=== PATIENT | male | born 1960 | race Caucasian/White ===

== ENCOUNTER 2020-03-03 15:34 | Inpatient (IN) | payer OTHER ==
[~2020-03-03] VITALS: Ht 182.9 cm; Wt 95.3 kg
[2020-03-03] MEDS ORDERED: ZINC50 M1 PO (16:05)
[2020-03-03] MEDS ORDERED: ASA-BUTALB-CAF1 EACH PO (16:05)
== END 2020-03-14 18:08 | disposition home health service (06) | DRG 623 ==
LOC: ER 15:34 → MEDJ 20:34
PROVIDERS: ADMIT Internal Medicine; ATTEND Internal Medicine
PROC: 8E0ZXY6 Isolation (ICD-10-PCS; 2020-03-04)
PROC: 0JBR0ZZ Excision of Left Foot Subcutaneous Tissue and Fascia, Open Approach (ICD-10-PCS; principal; 2020-03-06)
PROC: BQ2 Imaging, Non-Axial Lower Bones, Computerized Tomography (CT Scan) (ICD-10-PCS; 2020-03-08)
PROC: 02HV33Z Insertion of Infusion Device into Superior Vena Cava, Percutaneous Approach (ICD-10-PCS; 2020-03-09)
DX: E11.621 Type 2 diabetes mellitus with foot ulcer (principal); E87.1 Hypo-osmolality and hyponatremia; I96 Gangrene, not elsewhere classified; L97.423 Non-pressure chronic ulcer of left heel and midfoot with necrosis of muscle; M86.172 Other acute osteomyelitis, left ankle and foot; E11.65 Type 2 diabetes mellitus with hyperglycemia; D50.8 Other iron deficiency anemias; B96.4 Proteus (mirabilis) (morganii) as the cause of diseases classified elsewhere; B95.2 Enterococcus as the cause of diseases classified elsewhere; E86.0 Dehydration; Z20.828 Contact with and (suspected) exposure to other viral communicable diseases; Z79.4 Long term (current) use of insulin

== ENCOUNTER → 2020-03-21 | Emergency (ER) | payer OTHER ==
[~2020-03-21] VITALS: Ht 188 cm; Wt 108.9 kg
[~2020-03-21] MED LIST: ASA-BUTALB-CAF1 EACH PO; ZINC50 M1 PO
== END | disposition left against medical advice (07) ==
LOC: ER 17:01
DX: Z53.20 Procedure and treatment not carried out because of patient's decision for unspecified reasons (principal)

== ENCOUNTER 2020-03-22 08:44 | Emergency (ER) | payer OTHER ==
[~2020-03-22] VITALS: Ht 188 cm; Wt 108.9 kg
== END 2020-03-22 16:31 | disposition home or self-care (01) ==
LOC: ER 08:44
DX: T82.898A Other specified complication of vascular prosthetic devices, implants and grafts, initial encounter (principal)

== ENCOUNTER → 2021-03-16 | Outpatient (CLI) | payer OTHER | END | disposition home or self-care (01) | LOC: CANPRECLI → WOUND CARE 08:15 | PROVIDERS: ATTEND Specialist | DX: E10.621 Type 1 diabetes mellitus with foot ulcer (principal); L97.522 Non-pressure chronic ulcer of other part of left foot with fat layer exposed; L97.512 Non-pressure chronic ulcer of other part of right foot with fat layer exposed; R60.0 Localized edema | CPT/HCPCS: 11042; A6219; A6212; A4930; A4554; A6216 ==

== ENCOUNTER 2022-04-12 11:37 | Inpatient (IN) | payer OTHER ==
[~2022-04-12] VITALS: Ht 188 cm; Wt 97.5 kg
[2022-04-12] MEDS ORDERED: LOTREL 5-10 MG1 CAP PO (12:47)
[2022-04-12] MEDS ORDERED: SIMVASTATIN5 MG (12:48)
[2022-04-12] MEDS ORDERED: METFORMIN HCL500 M3 PO (12:48)
[2022-04-15] MEDS ORDERED: ROSUVASTATIN CA10 MG (10:49)
== END 2022-04-26 17:59 | disposition home or self-care (01) | DRG 256 ==
LOC: ER 11:37 → SURH 21:18 → SURG 21:18 → SEC-K 21:18 → SURG 04-13 02:28 → SURH 04-16 11:26
PROVIDERS: Specialist; ADMIT Internal Medicine; ATTEND Internal Medicine
PROC: 02HV33Z Insertion of Infusion Device into Superior Vena Cava, Percutaneous Approach (ICD-10-PCS; 2022-04-13)
PROC: BQ3DYZZ Magnetic Resonance Imaging (MRI) of Right Lower Leg using Other Contrast (ICD-10-PCS; 2022-04-15)
PROC: B54DZZZ Ultrasonography of Bilateral Lower Extremity Veins (ICD-10-PCS; 2022-04-15)
PROC: 0Y6V0Z1 Detachment at Right 4th Toe, High, Open Approach (ICD-10-PCS; principal; 2022-04-17 15:00)
PROC: 0H9MXZZ Drainage of Right Foot Skin, External Approach (ICD-10-PCS; 2022-04-24)
DX: I96 Gangrene, not elsewhere classified (principal); M86.671 Other chronic osteomyelitis, right ankle and foot; M00.871 Arthritis due to other bacteria, right ankle and foot; L97.518 Non-pressure chronic ulcer of other part of right foot with other specified severity; E11.52 Type 2 diabetes mellitus with diabetic peripheral angiopathy with gangrene; L08.9 Local infection of the skin and subcutaneous tissue, unspecified; E11.621 Type 2 diabetes mellitus with foot ulcer; D64.9 Anemia, unspecified; Z79.4 Long term (current) use of insulin; E11.69 Type 2 diabetes mellitus with other specified complication; B95.61 Methicillin susceptible Staphylococcus aureus infection as the cause of diseases classified elsewhere; B95.2 Enterococcus as the cause of diseases classified elsewhere; Z20.822 Contact with and (suspected) exposure to COVID-19; E66.8 Other obesity; I11.0 Hypertensive heart disease with heart failure; I50.9 Heart failure, unspecified
CPT/HCPCS: 73722